=== PATIENT | female | born 1965 | race African-American/Black ===

== ENCOUNTER 2019-07-18 14:55 | Emergency (ER) | payer MEDICAID ==
[~2019-07-18] VITALS: Ht 165.1 cm; Wt 117.0 kg
[~2019-07-18 14:55] MED LIST: ALBU0.63 NEB; ALPR1TAB2 PO; AMLO5TAB4 PO; ATEN100T PO; ATOR40TA PO; CIPR500T87 PO; FLUT1DIS3 INH; GABA300C10 PO; GLIP5TAB22 PO; HYDR-3237 PO; METO25TA35 PO; MIRT30TA97 PO; OMEP10CA5 PO; RIVA20TA PO; SERT100T PO; ZIPR60CA2 PO; ZOLP10TA PO
--- NOTE | 2019-07-18 15:32 | NUR ---
WORK STUDY STUDENT: PT TO ROOM FROM [facility]
[2019-07-18] MEDS ORDERED: KETOROLAC 30 MG/1 ML IM ONE (16:00)
[2019-07-18] MEDS ORDERED: OXYcodone/APAP 10/325MG TABLET PO ONE (16:00)
[2019-07-18 16:05] LABS: MICROSCOPIC AUTO
[2019-07-18 16:06] LABS: BASOPHILS # (AUTO) 0.04 x10^3/uL (0-0.1); BASOPHILS % (AUTO) 1 % (0-1); EOSINOPHILS # (AUTO) 0.12 x10^3/uL (0-0.4); EOSINOPHILS % (AUTO) 2 % (1-7); LYMPHOCYTES # (AUTO) 2.85 x10^3/uL (1-3.4); LYMPHOCYTES % (AUTO) 36 % (22-44); MD NO; MEAN CORPUSCULAR HEMOGLOBIN 25.6 pg (27.0-34.8); MEAN CORPUSCULAR HGB CONC 31.8 g/dL (32.4-35.8); MEAN CORPUSCULAR VOLUME 80.6 fL (80-100); MEAN PLATELET VOLUME 8.5 fL (7.4-10.4); MONOCYTES % (AUTO) 6 % (2-9); NEUTROPHILS # (AUTO) 4.35 x10^3/uL (1.8-6.8); NEUTROPHILS % (AUTO) 55 % (42-75); PLATELET COUNT 297 x10^3/uL (130-400); RED CELL DISTRIBUTION WIDTH 17.5 % (9.6-15.2)
[2019-07-18 16:14] LABS: ALBUMIN 3.5 g/dL (3.4-5.0); ANION GAP 9 mmol/L (5-15); CALCIUM 8.9 mg/dL (8.5-10.1); CHLORIDE 110 mmol/L (98-107); CREATININE 1.51 mg/dL (0.55-1.02)
[2019-07-18] MEDS ORDERED: OXYcodone/APAP 10/325MG TABLET ONE (16:29)
[2019-07-18] MEDS ORDERED: KETOROLAC 30 MG/1 ML ONE (16:29)
[2019-07-18 16:43] LABS: CULTURE INDICATED? NO
--- NOTE | 2019-07-18 16:46 | NUR ---
verified five rights of med administration, administered oxycodone 10/325mg po and toradol 30mg IM at 1633. Pt to CT.
--- NOTE | 2019-07-18 16:56 | NUR ---
report from [facility], pt in scan at this time.
[2019-07-18 17:49] VITALS: BP 143/96
[2019-08-08] MEDS ORDERED: ATOR40TA78 PO (19:24)
[2019-08-08] MEDS ORDERED: EMPA25TA PO (19:24)
[2019-08-08] MEDS ORDERED: INSU100I13 SQ (19:24)
[2019-08-08] MEDS ORDERED: INSU100V8 SQ (19:24)
[2019-08-08] MEDS ORDERED: PANT40TA5 PO (19:24)
[2019-08-08] MEDS ORDERED: METH750T2 PO (19:24)
[2019-08-08] MEDS ORDERED: DIVA500T2 PO (19:24)
[2019-08-08] MEDS ORDERED: METF500T17 PO (19:24)
[2019-08-08] MEDS ORDERED: BUSP10TA PO (19:24)
[2019-08-08] MEDS ORDERED: LINA5TAB PO (19:24)
== END 2019-07-18 17:51 | disposition home or self-care (01) ==
LOC: ED 17:32
DX: M54.5 Low back pain (principal); N28.1 Cyst of kidney, acquired; E11.9 Type 2 diabetes mellitus without complications
CPT/HCPCS: 36415; 74176; 80048; 81001; 82040; 85025; 96372; 99284; J1885

== ENCOUNTER 2019-11-09 09:54 | Emergency (ER) | payer MEDICAID ==
[~2019-11-09] VITALS: Ht 165.1 cm; Wt 117.0 kg
[~2019-11-09 09:54] MED LIST changes: +ATOR40TA78 PO; +BUSP10TA PO; +DIVA500T2 PO; +EMPA25TA PO; +INSU100I13 SQ; +INSU100V8 SQ; +LINA5TAB PO; +METF500T17 PO; +METH750T2 PO; +PANT40TA5 PO
[2019-11-09 10:03] VITALS: BP 139/67
== END 2019-11-09 10:50 | disposition home or self-care (01) ==
LOC: ED 10:40
DX: J02.0 Streptococcal pharyngitis (principal); J44.9 Chronic obstructive pulmonary disease, unspecified; E78.5 Hyperlipidemia, unspecified; F17.200 Nicotine dependence, unspecified, uncomplicated; I10 Essential (primary) hypertension; K21.9 Gastro-esophageal reflux disease without esophagitis; Z90.49 Acquired absence of other specified parts of digestive tract; Z90.710 Acquired absence of both cervix and uterus
CPT/HCPCS: 99283